=== PATIENT | female | born 1995 | race Caucasian/White ===

== ENCOUNTER 2019-10-09 17:14 | Emergency (ER) | payer BC, SELFPAY ==
[2019-10-09 17:26] VITALS: BP 119/64; PULSE 74; RESP 20; TEMP 37.2; O2SAT 100
--- NOTE | 2019-10-09 17:55 | PC.NURSE ---
c/o pain to bilateral jaws. No dental caries noted also c/o headache, no blurred vision.
--- NOTE | 2019-10-09 17:58 | ED.DENTAL ---
HPI - Dental/Oral General Chief complaint: Dental/Oral Stated complaint: jaw pain Time Seen by Provider: 10/09/19 17:54 Source: patient and RN notes reviewed Mode of arrival: ambulatory Limitations: no limitations History of Present Illness HPI Narrative: Patient presents today complaining of pain to the bilateral temporomandibular joints x3 to 4 days. Pain radiates up to the temples causing a headache as well. Patient has known TM joint pain, grinds her teeth at night and wears a mouthguard. Reports the pain is worse when she tries to move her jaw or open her mouth. Currently rates her pain 08/15. Has been taking Tylenol and ibuprofen with mild relief. She also reports some clicking with jaw movement. Related Data Home Medications Medication Instructions Recorded Confirmed albuterol sulfate [ProAir HFA] 1 puff INHALATION Q4-5H PRN 12/21/18 10/09/19 buspirone 10 mg PO BID 12/21/18 10/09/19 sertraline 100 mg PO DAILY 12/21/18 10/09/19 etonogestrel [Nexplanon] 1 implant SUBDERMAL ONCE 10/09/19 10/09/19 Allergies Allergy/AdvReac Type Severity Reaction Status Date / Time No Known Allergies Allergy Verified 10/09/19 17:31 Review of Systems Review of Systems: Narrative: CONSTITUTIONAL: Denies body aches, fever, chills, or sweats. EYES: Denies visual changes, redness, or discharge. ENT: Denies rhinorrhea, congestion, sore throat, or otalgia. Bilateral jaw pain CARDIOVASCULAR: Denies chest pain, palpitations, or edema. RESPIRATORY: Denies cough or dyspnea. GASTROINTESTINAL: Denies abdominal pain, nausea, vomiting, or diarrhea. GENITOURINARY: Denies dysuria or hematuria. SKIN: Denies rash, itching, or wounds. MUSCULOSKELETAL: Denies back pain, joint pain, or myalgia. NEUROLOGIC: Denies headache, numbness, tingling, or weakness. PSYCH: Denies depression or anxiety. FOR[facility]LY [facility], [facility] Past Medical History Medical History (Updated 10/09/19 @ 18:01 by Annette Vasquez, [employer], ) Asthma TMJ (temporomandibular joint disorder) Social History Social History (Updated 12/22/18 @ 21:43 by Mary Parish NP) Smoking status: Never smoker Gender identity (if verbalized by the patient): Female Comments At time of signature, I have reviewed and agree with nursing past medical, surgical, social and family history unless otherwise noted. Please see nursing chart for further information. There is no relevant family history pertinent to the presenting complaint Exam Narrative: Exam Narrative: GENERAL: Well-appearing, well-nourished, and in no acute distress. HEAD: Normocephalic, atraumatic. EYES: EOMI. No redness or drainage. ENT: Mucous membranes pink and moist. Nares clear. No rhinorrhea. + Tenderness to the bilateral temporomandibular joints. No crepitus noted. Pain with range of motion of the mandible. No swelling noted to the face. No tenderness to the teeth. NECK: Normal AROM. Supple. No lymphadenopathy. CHEST: No respiratory distress. EXTREMITIES: Normal range of motion. No edema. SKIN: Warm, dry, no rash. Capillary refill normal. Normal skin turgor. NEURO: No focal deficits. Alert and oriented x3. Gait steady. PSYCH: Normal affect. No signs of depression or anxiety. Course Vital Signs Vital signs: Vital Signs Temperature 98.9 F 10/09/19 17:26 Pulse Rate 74 10/09/19 17:26 Respiratory Rate 10/09/19 17:26 Blood Pressure 119/64 10/09/19 17:26 Pulse Oximetry 100 10/09/19 17:26 Temperature 98.9 F 10/09/19 17:26 Pulse Rate 74 10/09/19 17:26 Respiratory Rate 10/09/19 17:26 Blood Pressure 119/64 10/09/19 17:26 Pulse Oximetry 100 10/09/19 17:26 Reviewed MDM - Dental/Oral Differential Diagnosis Differential diagnosis: Likely dental abscess and other (Temporomandibular joint disorder, TM joint sprain, bruxism) Critical Care Time Critical Care Time Critical Care Time: No Discharge Plan Discharge Clinical Impression: TMJ arthralgia Qualifiers: Laterality: bila
== END 2019-10-09 18:05 | disposition home or self-care (01) ==
PROVIDERS: Emergency Provider Nurse Practitioner
DX: M26.623 Arthralgia of bilateral temporomandibular joint (principal); J45.909 Unspecified asthma, uncomplicated; F41.9 Anxiety disorder, unspecified; F32.9 Major depressive disorder, single episode, unspecified
CPT/HCPCS: 99213; G0463

== ENCOUNTER 2019-10-25 15:48 | Emergency (ER) | payer BC, SELFPAY ==
[2019-10-25 15:57] VITALS: BP 120/76; PULSE 76; RESP 20; TEMP 37.4; O2SAT 99
--- NOTE | 2019-10-25 16:10 | ED.ABDPAIN ---
HPI - Abdominal Pain General Chief Complaint: Abdominal Pain Stated Complaint: stomach pain Time Seen by Provider: 10/25/19 16:00 Source: patient Mode of arrival: ambulatory Limitations: no limitations History of Present Illness HPI narrative: Karen Arceo is a 23 yo female with no prior medical history who comes to express care with epigastric pain and inability to eat without pain. Been going on for weeks and she is scheduled for scope with a GI physician in 2 weeks, she currently is unable to eat much today she is had part of a school and she said made her started to belch and feel nauseated. She is tried some [id number] antacids without much success. Denies smoking or use of alcohol regularly Related Data Home Medications Medication Instructions Recorded Confirmed albuterol sulfate [ProAir HFA] 1 puff INHALATION Q4-5H PRN 12/21/18 10/25/19 buspirone 10 mg PO BID 12/21/18 10/25/19 sertraline 100 mg PO DAILY 12/21/18 10/25/19 etonogestrel [Nexplanon] 1 implant SUBDERMAL ONCE 10/09/19 10/25/19 Allergies Allergy/AdvReac Type Severity Reaction Status Date / Time No Known Allergies Allergy Verified 10/09/19 17:31 Review of Systems Review of Systems: Narrative: CONSTITUTIONAL: Denies fever, chills, sweats. EYES: Denies visual changes, redness, discharge. ENT: Denies rhinorrhea, congestion, sore throat, otalgia. CARDIOVASCULAR: Denies chest pain, palpitations, edema. RESPIRATORY: Denies dyspnea, wheezing, cough GASTROINTESTINAL: Has epigastric abdominal pain, has nausea, vomiting, diarrhea. GENITOURINARY: Denies dysuria, hematuria, abnormal discharge SKIN: Denies rash or itching. NEUROLOGIC: Denies numbness, or focal weakness. PSYCHIATRIC: Denies anxiety or depression. [facility] Past Medical History Medical History Asthma TMJ (temporomandibular joint disorder) Family History Family History Mother Hypertension Social History Social History Smoking status: Never smoker Gender identity (if verbalized by the patient): Female Comments At time of signature, I agree with nursing past medical, surgical, social and family history. There is no relevant family history pertinent to the presenting complaint. Exam Narrative: Exam Narrative: GENERAL: This is a well-nourished, well-developed patient, in moderate distress. HEAD: normocephalic, atraumatic. EYES: Sclera clear/white. Vision is grossly intact. EARS: External ears normal, . Hearing grossly intact. NOSE: External nose normal without nasal discharge, nares without redness, no rhinorrhea. THROAT: Mucous membranes moist, NECK: Neck supple, non-tender CARDIOVASCULAR: Regular rate and rhythm without murmurs, gallops, or rubs. RESPIRATORY: Clear to auscultation. Breath sounds equal bilaterally. No wheezes, rales, or rhonchi. GASTROINTESTINAL: Abdomen soft, gastric tenderness, SKIN: warm, intact with no suspicious lesions or rash, good texture and turgor. NEURO: awake, alert, and oriented to person, place and time. There were no obvious focal neurologic abnormalities. Steady gait EXTREMITIES: Normal range of motion. BACK: Nontender without deformity Course Course Emergency Course: Patient has a scheduled endoscopy with GI in 2 weeks. Started on Protonix twice daily with as needed Zofran. Patient is to get OTC Tums and take them regularly when eating Vital Signs Vital signs: Vital Signs Temperature 99.4 F 10/25/19 15:57 Pulse Rate 76 10/25/19 15:57 Respiratory Rate 10/25/19 15:57 Blood Pressure 120/76 10/25/19 15:57 Pulse Oximetry 99 10/25/19 15:57 Temperature 99.4 F 10/25/19 15:57 Pulse Rate 76 10/25/19 15:57 Respiratory Rate 10/25/19 15:57 Blood Pressure 120/76 10/25/19 15:57 Pulse Oximetry 99 10/25/19 15:57 MDM - Abdominal Pain Diff
== END 2019-10-25 16:25 | disposition home or self-care (01) ==
PROVIDERS: Emergency Provider Nurse Practitioner; PCP Family Medicine
DX: R10.13 Epigastric pain (principal); J45.909 Unspecified asthma, uncomplicated; F41.9 Anxiety disorder, unspecified; F32.9 Major depressive disorder, single episode, unspecified
CPT/HCPCS: 99213; G0463